=== PATIENT | male | born 1950 | race Caucasian/White ===

== ENCOUNTER 2023-09-20 12:16 | Outpatient (REF) | payer MEDICARE, SELFPAY ==
--- NOTE | ~2023-09-20 | XR_ITS ---
EXAMINATION: XR CERVICAL SPINE CLINICAL INFORMATION: Neck pain; question degenerative disc disease. COMPARISON: None available. TECHNIQUE: AP and lateral views of the cervical spine were obtained. FINDINGS: Vertebral body heights are normal. At C2-C3, there is a 2 mm anterolisthesis. At C5-C6 and C6-C7, there is moderately severe disc space narrowing. No acute fracture or spondylolisthesis is seen. There is multi-level cervical endplate and facet arthropathy. The posterior elements are intact. The paravertebral soft tissues are unremarkable. There are calcifications of the ligamentum nuchae. XR/XR cervical spine 2V IMPRESSION: There is multi-level cervical degenerative disc disease and endplate and facet arthropathy. Degenerative disc disease is most pronounced at C5-C6 and C6-C7, where it is moderately severe.
== END 2023-09-20 12:17 | disposition home or self-care (01) ==
LOC: HO.HMGCX 12:16
PROVIDERS: PCP Internal Medicine; Visit Provider Internal Medicine
DX: M54.2 Cervicalgia (principal)
CPT/HCPCS: 72040

== ENCOUNTER 2024-01-24 11:22 | Outpatient (REF) | payer MEDICARE, SELFPAY ==
--- NOTE | ~2024-01-24 | XR_ITS ---
EXAMINATION: XR KNEE 4 OR MORE VIEWS LEFT HISTORY: LEFT KNEE PAIN COMPARISON: There are no prior studies available for comparison. FINDINGS: Four views of the left knee are submitted. Osseous mineralization is normal. There is no fracture or dislocation. The joint spaces are preserved. The soft tissues are unremarkable. XR/XR knee LT 4V IMPRESSION: Unremarkable examination of the left knee. Electronically signed by: Joaquín Flores MD 02/28/2024 02:39 PM [facility]
== END 2024-01-24 11:23 | disposition home or self-care (01) ==
LOC: HO.HMGCX 11:22
PROVIDERS: PCP Internal Medicine; Visit Provider Internal Medicine
DX: M25.562 Pain in left knee (principal)
CPT/HCPCS: 73564

== ENCOUNTER → 2024-01-24 11:28 | Outpatient (BNV) | payer MEDICARE, SELFPAY | PROVIDERS: PCP Internal Medicine; Visit Provider Radiology Diagnostic Radiology | DX: M25.562 Pain in left knee (principal) | CPT/HCPCS: 73564 ==